=== PATIENT | female | born 1960 | race Caucasian/White ===

== ENCOUNTER → 2017-07-18 | Outpatient (CLI) | payer MEDICARE, BC ==
[~2017-07-18] MED LIST: ACYCLOVIR200 MG PO; ADVAIR 250/5028 PUFF IN; BACTRIM DS 8001 TAB PO; CLINDAMYCIN HC300 MG PO; DOXYCYCLINE100 M1 PO; LEVAQUIN 750 M750 MG PO; LEVAQUIN750 MG PO; LEVOTHYROXIN0.112 MG PO; LEXAPRO 20 MG T20 MG PO; MEDROL 4MG. DOSE4 MG PO; MOTRIN600 M1 PO; OMEPRAZOLE20 MG PO; PRAVASTATIN20 MG PO; PREDNISONE 10MG10 MG PO; PREDNISONE 20MG20 MG PO; PROAIR HFA0.09 MG/AC IH; SPIRIVA HA1 PUFF/INH IH; SYNTHROID0.112 MG PO; TYLENOL PM1 CAP PO; ZITHROMAX Z-PA250 M2 PO; ZOFRAN ODT4 MG PO
== END ==
LOC: LAB 15:42
DX: A04.8 Other specified bacterial intestinal infections (principal); K29.50 Unspecified chronic gastritis without bleeding; K44.9 Diaphragmatic hernia without obstruction or gangrene; R13.12 Dysphagia, oropharyngeal phase

== ENCOUNTER 2017-08-05 15:45 | Emergency (ER) | payer MEDICARE, BC ==
[~2017-08-05] VITALS: Ht 162.6 cm; Wt 106.3 kg
--- OUTSIDE RECORDS SUMMARY | 2017-08-05 16:06 | External Medical Summary Rpt | CCD ---
Demographics Preferred Language Romansh Marital Status Unknown Voodoo Affiliation Unknown Race Unknown Ethnic Group Unknown Author Author , NAN [place] Address Unknown Phone Immunization No patient found.
--- OUTSIDE RECORDS SUMMARY | 2017-08-05 16:06 | External Medical Summary Rpt | CCD ---
Author Author , NAN Organization NAN Address Unknown Phone [email or web address] Purpose Continuity of Care Document - 02-12-2017 through 2016 Problems Code Diagnosis DOS Provider Status J18.9 PNEUMONIA, UNSPECIFIED ORGANISM J44.1 CHRONIC OBSTRUCTIVE PULMONARY DISEASE W (ACUTE) EXACERBATIO N Z71.6 TOBACCO ABUSE COUNSELING Z72.0 TOBACCO USE Results Labs Lab Lab Date Result Refere Interp Status Commen Order Detail nces retati t Range on H pylori ag stool EIA (07-18-2017 07:00) H 11-15-2 Positiv Negativ complet pylori 017 e e ed ag 07:00 Positiv stool e L EIA Comment: Performed at: [facility] Comment: [address], [place] [id number] Comment: Metal Reed Tuner: Hunter Lewis MD, Phone: [phone] Helicobacter pylori Ag [Presence] in Stool by Immunoassay (07-18-2017 07:00) Helicob 11-15-2 Positiv Negativ Abnorma complet acter 017 e e l ed pylori 07:00 Ag [Presen ce] in Stool by Immunoa ssay Hemoglobin A1c in Blood (02-12-2017 08:00) Hemoglo 5.9 % 0.0% Normal complet bin A1c 017 - ed in 08:00 7.0% Blood
--- OUTSIDE RECORDS SUMMARY | 2017-08-05 16:06 | External Medical Summary Rpt | CCD ---
Demographics Preferred Language Armenian Marital Status Unknown Holiness Affiliation Unknown Race Unknown Ethnic Group Unknown Author Author , NAN [place] Address Unknown Phone Immunization No patient found.
--- OUTSIDE RECORDS SUMMARY | 2017-08-05 16:06 | External Medical Summary Rpt | CCD ---
Author Author , NAN Organization NAN Address Unknown Phone [email or web address] Purpose Continuity of Care Document - 02-12-2017 [...] stool e L EIA Comment: Performed at: [facility] Comment: [address], [place] [id number] Comment: Bookkeeping Machine Mechanic: Hunter Lewis MD, Phone: [phone] Helicobacter pylori Ag [Presence] in Stool by Immunoassay (07-18-2017 07:00) Helicob 11-15-2 Positiv Negativ Abnorma complet acter 017 e e l ed pylori 07:00 Ag [Presen ce] in Stool by Immunoa ssay Hemoglobin A1c in Blood (02-12-2017 08:00) Hemoglo 5.9 % 0.0% Normal complet bin A1c 017 - ed in 08:00 7.0% Blood
--- OUTSIDE RECORDS SUMMARY | 2017-08-05 16:06 | External Medical Summary Rpt | CCD ---
Author Author [employer] Organization [employer] Address Unknown Phone Unavailable Purpose Continuity of Care Document - through 2016
--- OUTSIDE RECORDS SUMMARY | 2017-08-05 16:07 | External Medical Summary Rpt ---
Author Author [employer], [employer]AD[employer] Organization [employer] Address Unknown Phone Unavailable Results Helicobacter pylori Ag [Presence] in Stool by Immunoassay Observa Value Referen Units Interpr Notes Date tion ce etation Range Helicob Positiv Negativ No Abnorma Perform Jul 18 acter e e informa l ed at: 2017 pylori tion in BN - 7:00 AM Ag source [facility] [Presen data ce] in [place] [address] [facility] [place], [place] [id number] Directo r: Hunter Lewis MD, Phone: [phone] Comprehensive metabolic 2000 panel in Serum or Plasma Observa Value Referen Units Interpr Notes Date tion ce etation Range Albumin/G 1.1 - 1.8 No Low No Feb 12 lobulin informati informati 2016 8:00 [Mass on in on in AM ratio] in source source Serum or data data Plasma Albumin 3.4 - 5.0 gm/dL Normal No Feb 12 [Mass/vol informati 2016 8:00 ume] in on in AM Serum or source Plasma data Alkaline 46 - 116 U/L Normal No Feb 12 phosphata informati 2017 8:00 se on in AM [Enzymati source c data activity/ volume] in Serum or Plasma Bilirubin 0.2 - 1.0 mg/dL Normal No Feb 12 .total informati 2017 8:00 [Mass/vol on in AM ume] in source Serum or data Plasma Urea 7 - 18 mg/dL Normal No Feb 12 nitrogen informati 2017 8:00 [Mass/vol on in AM ume] in source Serum or data Plasma Calcium 8.5 - mg/dL Normal No Feb 12 [Mass/vol 10.1 informati 2017 8:00 ume] in on in AM Serum or source Plasma data Chloride 98 - 107 mmoL/L Normal No Feb 12 [Moles/vo informati 2016 8:00 lume] in on in AM Serum or source Plasma data Carbon 21.0 - mmoL/L Normal No Feb 12 dioxide, 32.0 informati 2016 8:00 total on in AM [Moles/vo source lume] in data Serum or Plasma Creatinin 0.55 - mg/dL Normal No Feb 12 e 1.02 informati 2016 8:00 [Mass/vol on in AM ume] in source Serum or data Plasma Estimated 59- ML/MIN No REFERENCE Feb 12 informati RANGE: 2017 8:00 glomerula on in >60 AM r source ML/MIN/1. filtratio data 73 SQUARE n rate METERSIf (GF this patient is -A merican, then multiply theresult by 1.210. Globulin 1.3 - 3.2 gm/dL High No Feb 12 [Mass/vol informati 2016 8:00 ume] in on in AM Serum source data Glucose 74 - 106 mg/dL Normal No Feb 12 [Mass/vol informati 2016 8:00 ume] in on in AM Serum or source Plasma data Potassium 3.5 - 5.1 mmoL/L Normal No Feb 12 inform2016 8:00 [Moles/vo on in AM lume] in source Serum or data Plasma Sodium 136 - 145 mmoL/L Normal No Feb 12 [Moles/vo informati 2016 8:00 lume] in on in AM Serum or source Plasma data Aspartate 15 - 37 U/L Low No Feb 12 informati 2016 8:00 aminotran on in AM sferase source [Enzymati data c activity/ volume] in Serum or Plasma Alanine 12 - 78 U/L Normal No Feb 12 aminotran informati 2016 8:00 sferase on in AM [Enzymati source c data activity/ volume] in Serum or Plasma Protein 6.4 - 8.2 gm/dL Normal No Feb 12 [Mass/vol informati 2016 8:00 ume] in on in AM Serum or source Plasma data Lipid 1996 panel in Serum or Plasma Observa Value Referen Units Interpr Notes Date tion ce etation Range Cholester < 200 mg/dL No No Feb 12 ol informati informati 2016 8:00 [Moles/vo on in on in AM lume] in source source Unspecifi data data ed specimen Cholester 40 - 60 MG/DL Normal No Feb 12 ol in HDL informati 2016 8:00 on in AM [Mass/vol source ume] in data Serum or Plasma Cholester 0 - 130 mg/dL Normal No Feb 12 ol in LDL informati 2017 8:00 on in AM [Mass/vol source ume] in data Serum or Plasma by calculati on Triglycer 30 - 200 mg/dL Normal No Feb 12 diana inform2016 8:00 [Moles/vo on in AM lume] in source Serum or data Plasma Cholester 0 - 40 No Normal No Feb 12 ol in informati inform2016 8:00 VLDL on in on in AM [Mass/vol source source ume] in data data Serum or Plasma Thyrotropin [Units/volume] in Serum or Plasma Observa Value Referen Units Interpr Notes Date tion ce etation Range Thyrotrop 0.358 - uIU/ml No No Feb 12 in 3.740 informati inform2016 8:00 [Units/vo on in on in AM lume] in source source Serum or data data Plasma Hemoglobin A1c in Blood Observa Value Referen Units Interpr Notes Date tion ce etation Range Hemoglo 5.9 0.0 - % Normal < 6% Feb 12 bin A1c 7.0 NON-SEFERINO 2017 in [facility] 8:00 AM Blood LEVEL< 7% CONTROL LED DIABETI C LEVEL> 8% POORLY CONTROL LED DIABETI C LEVEL
--- OUTSIDE RECORDS SUMMARY | 2017-08-05 16:07 | External Medical Summary Rpt ---
[...] Ag source [facility] [Presen data ce] in [place] [address] [facility] [address] [place], [place] [id number] Directo r: Hunter Lewis MD, Phone: [phone] Comprehensive metabolic 2000 panel in Serum or [...] 12 bin A1c 7.0 NON-SEFERINO 2017 in [facility] 8:00 AM Blood LEVEL< 7% CONTROL LED DIABETI C LEVEL> 8% POORLY CONTROL LED DIABETI C LEVEL
[2017-08-05] MEDS ORDERED: PREDNISONE 20MG20 MG PO (16:53)
[2017-08-05] MEDS ORDERED: FLONASE 50 MCG16 GM (16:53)
[2017-08-05] MEDS ORDERED: ZITHROMAX Z PA250 MG PO (16:53)
[2017-08-05] MEDS ORDERED: MUCINEX1200 MG PO (16:53)
--- NOTE | 2017-08-05 16:54 | Urgent Treatment Center Report ---
History of Present Issue Date/Time Seen by Provider 08/05/17 1642 Visit Reason Pt arrived:Walked Presenting Problem:PT STATES SHE HAS ALOT OF CHEST CONGESTION, COUGH, AND COUGHING UP MUCOUS X'S 1 WK Location if Accident: Onset of symptoms date/time:/ or onset unknown for:MEDICAL HX UNKNOWN Have you (or family members/close friends) recently traveled outside the [place]? N If Yes, where/when: Have you had exposure to infectious disease within the past month? TB? Other? Specify: Pateint state that she has been having sinus pain and congestion now for almost 3 weeks that has continued to get worse States that drainage thick and yellowish brown in color State that it initially got better then symptoms returned and was worse than they was initially ALLERGIES Coded Allergies: Penicillins (Mild, 09/06/15) cephalexin (From KEFLEX) (Mild, 09/04/15) Home Medications Active Scripts Azithromycin (Zithromax) 250 MG PO DAILY #6 TAB Prov: 09/07/15 Clindamycin Hcl (Clindamycin 300MG) 300 MG PO TID #30 CAP Prov: 09/07/15 Ondansetron (Zofran 4MG Odt) 4 MG PO Q6HP PRN NAUSEA AND VOMITING #12 ODT Prov: 09/04/15 SULFAMETHOXAZOLE/TRIMETHOPRIM (Sulfamethoxazole-Tmp Ds Tablet) 1 TAB PO BID #14 TAB Prov: 07/10/15 Methylprednisolone (Medrol Dose Vladimir) 4 MG PO UD #1 VLADIMIR Prov: 07/10/15 Reported Medications Acyclovir (Acyclovir 200MG) 200 MG PO DAILY Tiotropium [place] (Spiriva) 2 PUFF IH DAILY Pravastatin Sodium 20 MG PO QHS Escitalopram Oxalate (Lexapro 20MG) 40 MG PO DAILY Levothyroxine Sodium (Synthroid 0.112MG) 0.112 MG PO DAILY Albuterol Sulfate (Proair Hfa) 1 PUFF IH QID FLUTICASONE/SALMETEROL (Advair 250-50 Diskus) 1 PUFF IN BID History Medical History General CAD? No Angina: No [place]: No Hypertension? No Hyperlipidemia? Yes CHF? No DVT? No PE? No COPD? Yes Asthma? No Anemia? No GERD? No Gastric ulcers? No GI Bleed? No Hernia? Yes Thyroid Problems? No Hypothyroidism? No CVA? No Seizures? No Diabetes? No Insulin Dependent: No Insulin Pump: No Home FSBS? No Renal Insuffiency? No UTI? No Stones? No BPH? No GB Disease: No Nephritic Syndrome? No Asplenia? No Hepatitis? No Sickle Cell Disease? No Arthritis? No Migraines? No Cataracts? No Glaucoma? No MRSA? No HIV? No TB? No Anxiety? No Depression? No Cancer? No More? 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 Respiratory cough Physical Exam Vital Signs Vital Signs Date Time Temp Pulse Resp B/P Pulse O2 O2 Flow FiO2 Ox Delivery Rate 08/05 1619 98.4 99 20 137/75 98 General Appearance normal appearance, WD/WN, no apparent distress Ear, Nose, Throat sinus pain/drainage, nasal congestion, Tenderness noted maxillary sinuses feeling of pressure behind eyes Respiratory Status Yes: trachea midline, chest symmetrical, non tender chest. No: respiratory distress. Lung Sounds bilateral: normal breath sounds, lungs clear. Cardiovascular normal exam, regular rate/rhythm, no peripheral edema Neurologic alert, normal exam, oriented x 3 Medical Decision Making LABS/Meds/Orders Pt receiving controlled substance in ED? No Departure Departure Time of Disposition 1650 Disposition DC Home or Self Care(routine) Clinical Impression Primary Impression: Upper respiratory infection Qualifiers: URI type: unspecified URI Qualified Code: J06.9 - Acute upper respiratory infection, unspecified Condition STABLE Referrals Pedro Boswell MD (Family): 4 Days-Call Office if no improvement or worsening of symptoms Patient Instructions Cough, DI for Nasal Congestion, Sinus Headache, Sinusitis Additional Instructions Start antibiotic. Sinus infections may take 2-3 days to notice much improvement so be sure to use conservative measures as discussed for symptoms Flonase 2 spray in each nostril daily to help with nasal congestion, sinus an ear pressure/inflammation Lots of Fluids Sleep elevated Humidifer/vaporizer Discharge Counseling Counseled pt/family regarding diagnosis, medications/RX, home care, follow up needs Prescriptions Current Visit Scripts Azithromycin (Zithromycin (Z-VLADIMIR) 250MG Tab) 250 MG PO DAILY #6 TAB TAKE TWO (2) TABLETS ON DAY 1, THEN ONE (1) TABLET DAY #2 THRU #5 Fluticasone Propionate (Flonase 50 Mcg Nasal [place]) 2 SPRAY NA DAILY #1 BOT Prednisone (Prednisone 20MG) 20 MG PO BID #10 TAB Guaifenesin (Mucinex) 1,200 MG PO BID #20 TER at [id number]
[2017-08-05 16:59] VITALS: BP 137/75
== END 2017-08-05 17:00 | disposition home or self-care (01) ==
LOC: UTC 15:45
DX: J06.9 Acute upper respiratory infection, unspecified (principal); F17.210 Nicotine dependence, cigarettes, uncomplicated; J44.9 Chronic obstructive pulmonary disease, unspecified; E78.5 Hyperlipidemia, unspecified; Z88.0 Allergy status to penicillin